=== PATIENT | male | born 1990 | race African-American/Black ===

== ENCOUNTER 2019-11-07 11:12 | Emergency (ER) | payer OTHER ==
[2019-11-07 11:29] VITALS: BP 140/77; PULSE 73; TEMP 98.2; BMI 38.0
[2019-11-07] MEDS ORDERED: ACETAMINOPHEN 325 MG TABLET (FP) PO ONE (12:09)
--- NOTE | 2019-11-07 12:15 | PDOC ---
Attending Attestation - Resident Resident Name: Jovani Ramirez - ED Attending Attestation I have performed the following: I have examined & evaluated the patient, The case was reviewed & discussed with the resident, I agree w/resident's findings & plan, Exceptions are as noted - HPI HPI: 11/07/19 12:11 29YOM with h/o HTN and HLD who p/w 3 days vague LEE, lightheadedness, and increased defecation yesterday without diarrhea or change in stool consistency. Frontal headache which is mild and similar to prior headaches. He notes that the lightheadedness is intermittent which occurs concurrently with mild nausea. He denies f/c/n/v/d/c, n/t/w focally. Denies any LOC or feeling like he is/was ever going to faint. - Physicial Exam PE: 11/07/19 12:12 GENERAL: well-appearing, A/Ox4, no distress, answers questions appropriately, obese, very pleasant HEENT: PERRLA, EOMI, moist mucous membranes NECK/BACK: no midline ttp, no spinal step-off or deformity, no hematoma, full ROM, neck supple CARDIOVASCULAR: regular rate/rhythm, no MGR, strong peripheral pulses, capillary refill <2 seconds, extremities wwp, no edema LUNGS/RESPIRATORY: no respiratory distress, CTAB GI/ABDOMEN: symmetric [id number], normoactive BS, soft, no ttp, no midline pulsatile masses : no CVA tenderness MSK/EXTREMITIES: no muscle atrophy, no acute deformity SKIN: warm and dry, no pallor, no jaundice, no rash, no pathologic-appearing bruising, no skin breakdown, no cuts, no lesions NEUROLOGICAL: GCS 15, CN II-XII grossly intact, 5/5 strength proximally and distally, no facial droop, gait normal - Medical Decision Making 11/07/19 12:12 Adult male Pt p/w headache, no reported mechanism for injury, no new red flag symptoms (see HPI). LEE not worse on awakening in the AM, no B symptoms, trauma, fever, vision loss, syncope, n/t/w focally, sudden onset, etc. Lightheadedness on standing, patient notes he is dehydrated. Initial Vital Signs Temp Pulse Resp BP Pulse Ox 98.2 F 73 16 140/77 99 11/07/19 11:25 11/07/19 11:25 11/07/19 11:25 11/07/19 11:25 11/07/19 11:25 W/U ordered: EKG TX ordered: None EKG: Reviewed; results as noted in ECG Review section. 11/07/19 14:30 This Pt has gotten significant relief of symptoms while in the ED. On last reassessment, vitals are wnl, pain is reasonably controlled, and exam is benign. Workup is not concerning for emergency-level pathology at this time. He is appropriate for discharge home w/ close outpatient f/u. He is comfortable with this plan & will take Motrin and/or Tylenol for pain. He will follow up with his primary care provider in the next 1-3 days. Specific return precautions are discussed and he will come back to the ER if necessary. Discharge completed by resident physician. Heart Score/ECG Review #1 11/07/19 12:28 Sinus rhythm, rate 64, normal axis and intervals, no ischemic ST-T changes Discharge - Discharge Information Problems reviewed: Yes Clinical Impression/Diagnosis: Intermittent lightheadedness Headache Qualifiers: Headache type: unspecified Headache chronicity pattern: episodic headache Intractability: not intractable Qualified Code(s): R51 - Headache Condition: Stable Disposition: HOME - Admission No - Follow up/Referral Referrals: ON STAFF,NOT [Primary Care Provider] - - Patient Discharge Instructions Patient Printed Discharge Instructions: DI for Headache Additional Instructions: You were seen and evaluated for headache and intermittent lightheadedness. Continue your home medications as directed. These chronic medical problems may play a role in your symptoms and will cause you worse medical problems in the future if left untreated. Likewise, please discontinue any supplements that you have not discussed with your primary care doctors as these can have unintended effects and are not federally regulated for safety and quality. Please follow up with your primary care doctor when she returns to the office next week. Home Care and Follow Up: - Make sure you are drinking plenty of fluids.. Increase your normal fluid intake. It is OK if you do not feel like eating as long as you are staying well hydrated. You should need to urinate every 3-4 hours. - You may use medications such as acetaminophen (Tylenol) 650-1000mg or ibuprofen (Advil, Motrin) 400-600mg every 6 hours as needed for pain or fever over 101F - Consider placing a humidifier in your room overnight to help relieve congestion and reduce drying of your nose and mouth. - Use throat lozenges (cough drops) for sore throat or cough - If you use additional cold medications, make sure they do not contain medicines you are already taking such as acetaminophen or ibuprofen - You should feel better within a week, though cough can sometimes last longer. If you are not feeling better in a week, follow up with your primary doctor. - Seek immediate care if you have worsening symptoms, difficulty breathing, you faint (pass out), you are unable to stay hydrated, you develop high fevers over 104F that do not come down with medication, or you have any other medical emergency. - Post Discharge Activity
[2019-11-07] MEDS ORDERED: ACETAMINOPHEN 325 MG TABLET (FP) ONE (12:16)
--- NOTE | 2019-11-07 12:29 | PDOC ---
History of Present Illness - General History Source: Patient Exam Limitations: No Limitations - History of Present Illness Initial Comments: 11/07/19 12:10 HPI: 29yo M pmh HTN, HLD, obesity, presenting with 3 days of headache, intermittent lightheadedness. Patient endorses a mild frontal headache, non- radiating, non-pulsating, no photophobia or lacrimation. Has not tried any medication for this at home. Also endorses intermittent episodes of lighthead edness and nausea (without emesis) over this period. Reports he is not compliant with his home medications and instead takes several herbal supplements. Denies chest pain, palpitations, SOB, cough, fevers, chills, abdominal pain, syncope, vomiting. All: PCN Meds: Non-compliant PMH: HTN, HLD PSH: None <Jovani Ramirez - Last Filed: 11/07/19 12:52> <Rosibel Gongora - Last Filed: 11/07/19 12:54> - General Chief Complaint: Lightheaded Stated Complaint: LIGHTHEADED Time Seen by Provider: 11/07/19 11:49 Past History - Travel History Traveled outside of the country in the last 30 days: No Close contact w/someone who was outside of country & ill: No - Medical History COPD: No HTN: Yes Hypercholesterolemia: Yes - Psycho-Social/Smoking History Smoking History: Current every day smoker Information on smoking cessation initiated: No - Substance Abuse Hx (Audit-C & DAST Scrn) How often the patient has a drink containing alcohol: Never Score: In Men: 4 or > Positive; In Women: 3 or > Positive: 0 Screen Result (Pos requires Nsg. Audit-10AR): Negative <Jovani Ramirez - Last Filed: 11/07/19 12:52> <Roisbel Gongora - Last Filed: 11/07/19 12:54> - Medical History Allergies/Adverse Reactions: Allergies Allergy/AdvReac Type Severity Reaction Status Date / Time Penicillins Allergy Verified 11/07/19 11:25 Home Medications: Ambulatory Orders Hydrochlorothiazide [Hctz -] 25 mg PO DAILY 11/07/19 Simvastatin [Zocor] 10 mg PO HS 11/07/19 Review of Systems - Review of Systems Able to Perform ROS?: Yes Is the patient limited Danish proficient: Yes Constitutional: No: Chills, Fever HEENTM: No: Eye Pain, Blurred Vision, Recent change in vision, Throat Pain Respiratory: No: Cough, Shortness of Breath Cardiac (ROS): Yes: Lightheadedness. No: Chest Pain, Irregular Heart Rate, Palpitations, Chest Tightness ABD/GI: No: Constipated, Diarrhea, Nausea, Vomiting : No: Burning, Dysuria, Frequency Musculoskeletal: No: Muscle Pain, Muscle Weakness Integumentary: No: Bruising, Pruritus, Rash Neurological: Yes: See HPI, Headache. No: Numbness, Tingling, Weakness Psychiatric: No: Stressors, Change in Appetite Endocrine: No: Increased Thirst, Increased Urine Hematologic/Lymphatic: No: Anemia, Blood Clots, Easy Bleeding All Other Systems: Reviewed and Negative <Jovani Ramirez - Last Filed: 11/07/19 12:52> *Physical Exam - Vital Signs Last Vital Signs Temp Pulse Resp BP Pulse Ox 98.2 F 73 16 140/77 99 11/07/19 11:25 11/07/19 11:25 11/07/19 11:25 11/07/19 11:25 11/07/19 11:25 - Physical Exam 11/07/19 12:31 Vitals reviewed, AFVSS GEN: Well appearing, obese, appears stated age, NAD, comfortable. AAOx3. HEENT: NCAT, EOMI, PERRL. Sclera anicteric, noninjected. No facial asymmetry. Moist mucous membranes. Normal voice. Trachea midline. CV: RRR, S1/S2, no murmurs / rubs / gallops appreciated. LUNG: CTABL, normal work of breathing. No wheezes, rales, rhonchi. No cough. Speaking full sentences. GI: Soft, NTND, +BS, no guarding, no rebound. No masses. EXTREMITIES: 2+ distal pulses. No clubbing / cyanosis / edema. No gross deformity in any extremity. SKIN: Warm, dry, no rashes appreciated, non-jaundiced. PSYCH: Normal mood and affect. Cooperative and appropriate. NEURO: CN grossly intact. Moving all extremities well. Normal strength and sensation grossly. <Jovani Ramirez - Last Filed: 11/07/19 12:52> - Vital Signs Last Vital Signs Temp Pulse Resp BP Pulse Ox 98.2 F 73 16 140/77 99 11/07/19 11:25 11/07/19 11:25 11/07/19 11:25 11/07/19 11:25 11/07/19 11:25 <Rosibel Gongora - Last Filed: 11/07/19 12:54> ED Treatment Course - Medications Given in the ED: ED Medications Discontinued Medications Generic Name Dose Route Start Last Admin Trade Name Zoey PRN Reason Stop Dose Admin Acetaminophen 975 mg 11/07/19 12:09 11/07/19 12:20 Tylenol - PO 11/07/19 12:10 975 mg ONCE ONE Administration <Rosibel Gongora - Last Filed: 11/07/19 12:54> Medical Decision Making - Medical Decision Making 11/07/19 12:32 29yo M pmh HTN, HLD, obesity, presenting with 3 days of headache, intermittent lightheadedness. History notable for mild headache, lightheadedness intermittently (setting of increased ambient temperature), headache more mild than prior - untreated at home. Physical exam unremarkable, stable vitals (HR 60s), well appearing, comfortable. Together concerning for most likely primary headache, ?intermittent dehydration, also concerning for supplement induced symptoms in setting of recent 2 weeks of new alternative "for my health" therapies. - EK, NSR, normal axis, normal intervals (QTc 373), no ST elevations or concernign morphologies, notable for mild J point elevation in V2 - 975mg Tylenol PO Dispo: Home <Jovani Ramirez - Last Filed: 11/07/19 12:52> Discharge - Discharge Information Problems reviewed: Yes - Admission No <Jovani Ramirez - Last Filed: 11/07/19 12:52> <Rosibel Gongora - Last Filed: 11/07/19 12:54> - Discharge Information Clinical Impression/Diagnosis: Intermittent lightheadedness Headache Qualifiers: Headache type: unspecified Headache chronicity pattern: episodic headache Intractability: not intractable Qualified Code(s): R51 - Headache Condition: Stable Disposition: HOME - Follow up/Referral Referrals: ON STAFF,NOT [Primary Care Provider] - - Patient Discharge Instructions Patient Printed Discharge Instructions: DI for Headache Additional Instructions: You were seen and evaluated for headache and intermittent lightheadedness. Continue your home medications as directed. These chronic medical problems may play a role in your symptoms and will cause you worse medical problems in the future if left untreated. Likewise, please discontinue any supplements that you have not discussed with your primary care doctors as these can have unintended effects and are not federally regulated for safety and quality. Please follow up with your primary care doctor when she returns to the office next week. Home Care and Follow Up: - Make sure you are drinking plenty of fluids.. Increase your normal fluid intake. It is OK if you do not feel like eating as long as you are staying well hydrated. You should need to urinate every 3-4 hours. - You may use medications such as acetaminophen (Tylenol) 650-1000mg or ibuprofen (Advil, Motrin) 400-600mg every 6 hours as needed for pain or fever over 101F - Consider placing a humidifier in your room overnight to help relieve congestion and reduce drying of your nose and mouth. - Use throat lozenges (cough drops) for sore throat or cough - If you use additional cold medications, make sure they do not contain med icines you are already taking such as acetaminophen or ibuprofen - You should feel better within a week, though cough can sometimes last longer. If you are not feeling better in a week, follow up with your primary doctor. - Seek immediate care if you have worsening symptoms, difficulty breathing, you faint (pass out), you are unable to stay hydrated, you develop high fevers over 104F that do not come down with medication, or you have any other medical emergency. - Post Discharge Activity
--- NOTE | 2019-11-07 14:51 | EKG ---
Test Reason : Blood Pressure : / mmHG Vent. Rate : 064 BPM Atrial Rate : 064 BPM P-R Int : 180 ms QRS Dur : 090 ms QT Int : 362 ms P-R-T Axes : 043 022 005 degrees QTc Int : 373 ms NORMAL SINUS RHYTHM NONSPECIFIC T WAVE ABNORMALITY ABNORMAL ECG NO PREVIOUS ECGS AVAILABLE Confirmed by LORA ONTIVEROS MD ([id number]) on 11/07/2019 2:50:47 PM Referred By: Confirmed By:LORA ONTIVEROS MD
== END 2019-11-07 13:10 | disposition home or self-care (01) ==
LOC: JER 11:12
DX: R51 Headache (principal)
CPT/HCPCS: 93005; 93010; 99283-25

== ENCOUNTER 2020-07-16 06:06 | Observation (INO) | payer OTHER ==
[2020-07-16] MEDS ORDERED: ASPIRIN 81 MG CHEWABLE TABLETS PO ONE (06:25)
[2020-07-16 06:27] VITALS: BMI 38.0
[2020-07-16] MEDS ORDERED: ASPIRIN 81 MG CHEWABLE TABLETS PO SCH ×2 (06:46→10:00)
[2020-07-16 06:52] LABS: EOS % 1.7 % (0-4.5); HEMATOCRIT 45.1 % (35.4-49); HEMOGLOBIN 16.2 GM/dL (11.7-16.9); LYMPH % 30.5 % (8-40); MCH 31.9 pg (25.7-33.7); MCHC 35.9 g/dl (32.0-35.9); MEAN CELL VOLUME 88.9 fl (80-96); MEAN PLT VOLUME 7.4 fl (7.5-11.1); MONO % 5.6 % (3.8-10.2); NEUT % 61.2 % (42.8-82.8); PLATELET COUNT 215 K/MM3 (134-434); RBC 5.07 M/mm3 (4.00-5.60); RDW 13.7 % (11.9-15.9); WHITE BLOOD COUNT 7.3 K/mm3 (4.0-10.0)
[2020-07-16 07:12] LABS: INR 1.02 (0.83-1.09); PROTHROMBIN TIME (PATIENT) 12.5 SEC (9.7-13.0)
[2020-07-16 07:14] LABS: ACTIVATED PTT 31.8 SECONDS (25.2-36.5)
[2020-07-16 07:16] LABS: CHLORIDE 106 mmol/L (98-107); POTASSIUM 3.7 mmol/L (3.5-5.1); SODIUM 138 mmol/L (136-145)
[2020-07-16 07:18] LABS: ALBUMIN 3.8 g/dl (3.4-5.0); ANION GAP 7 MMOL/L (8-16); BLOOD UREA NITROGEN 16.4 mg/dL (7-18); CALCIUM 8.9 mg/dL (8.5-10.1); CO2 25 mmol/L (21-32)
[2020-07-16 07:19] LABS: GLUCOSE,RANDOM 168 mg/dL (74-106)
[2020-07-16 07:21] LABS: SGOT/AST 25 U/L (15-37); SGPT/ALT 31 U/L (13-61)
[2020-07-16 07:23] LABS: BILIRUBIN,TOTAL 0.4 mg/dL (0.2-1)
[2020-07-16 07:24] LABS: ALK PHOS 70 U/L (45-117)
[2020-07-16] MEDS ORDERED: ASPIRIN 81 MG CHEWABLE TABLETS ONE (10:25)
[2020-07-16] MEDS ORDERED: HEPARIN NA (PORCINE) 5,000 UNITS/ML 1ML VIAL SQ SCH (14:00)
[2020-07-16] MEDS ORDERED: HEPARIN NA (PORCINE) 5,000 UNITS/ML 1ML VIAL ONE (14:05)
[2020-07-16 14:17] VITALS: BP 135/93; PULSE 73; TEMP 98.1
== END 2020-07-16 15:40 | disposition left against medical advice (07) ==
LOC: JER 06:06 → JERBED 07:17
PROVIDERS: ADMIT Internal Medicine; ATTEND Internal Medicine
DX: R07.9 Chest pain, unspecified (principal); I10 Essential (primary) hypertension; E66.9 Obesity, unspecified; Z68.38 Body mass index [BMI] 38.0-38.9, adult; E78.5 Hyperlipidemia, unspecified
CPT/HCPCS: 36415; 70496-TC; 70498-TC; 71045-TC-FY; 71275-TC; 74174-TC; 80053; 83735; 84484; 85025; 85379; 85610; 85730; 93005; 93010; 99285-25; C9803; G0378; Q9967; U0003; U0005

== ENCOUNTER 2020-07-31 06:53 | Emergency (ER) | payer OTHER ==
[2020-07-31 07:14] VITALS: BMI 83.7
[2020-07-31 08:09] LABS: BASO % 1.1 % (0-2.0); EOS % 2.4 % (0-4.5); HEMATOCRIT 45.2 % (35.4-49); HEMOGLOBIN 16.4 GM/dL (11.7-16.9); LYMPH % 26.2 % (8-40); MCHC 36.3 g/dl (32.0-35.9); MEAN PLT VOLUME 7.4 fl (7.5-11.1); MONO % 7.7 % (3.8-10.2); NEUT % 62.6 % (42.8-82.8); PLATELET COUNT 230 K/MM3 (134-434); RBC 5.14 M/mm3 (4.00-5.60); RDW 13.5 % (11.9-15.9); WHITE BLOOD COUNT 6.8 K/mm3 (4.0-10.0)
[2020-07-31 08:19] LABS: CHLORIDE 106 mmol/L (98-107); SODIUM 141 mmol/L (136-145)
[2020-07-31 08:21] LABS: ANION GAP 10 MMOL/L (8-16); BLOOD UREA NITROGEN 15.3 mg/dL (7-18); CALCIUM 8.5 mg/dL (8.5-10.1); CO2 24 mmol/L (21-32); MAGNESIUM 2.3 mg/dL (1.8-2.4)
[2020-07-31 08:22] LABS: GLUCOSE,RANDOM 115 mg/dL (74-106)
[2020-07-31 08:25] LABS: CREATININE 0.9 mg/dL (0.55-1.3); SGOT/AST 27 U/L (15-37); SGPT/ALT 33 U/L (13-61)
[2020-07-31 08:26] LABS: BILIRUBIN,TOTAL 0.4 mg/dL (0.2-1)
[2020-07-31 08:27] LABS: ALK PHOS 71 U/L (45-117)
[2020-07-31 08:39] LABS: INR 1.04 (0.83-1.09); PROTHROMBIN TIME (PATIENT) 12.8 SEC (9.7-13.0)
[2020-07-31] MEDS ORDERED: SODIUM CHLORIDE 1,000 ML IV STA (08:47)
[2020-07-31] MEDS ORDERED: ONDANSETRON 4 MG/2 ML VIAL IVPUSH ONE (08:47)
[2020-07-31] MEDS ORDERED: FAMOTIDINE 20 MG/50 ML IVPB 20 MG/50 ML MG IVPB ONE ×2 (08:51→08:57)
[2020-07-31] MEDS ORDERED: ACETAMINOPHEN 500 MG TABLET (FP) PO ONE (08:51)
[2020-07-31] MEDS ORDERED: MAG HYDROX/AL HYDROX/SIMETH 30 ML UNIT-DOSE CUP PO ONE (08:51)
[2020-07-31] MEDS ORDERED: ACETAMINOPHEN 325 MG TABLET (FP) ONE (08:57)
[2020-07-31] MEDS ORDERED: MAG HYDROX/AL HYDROX/SIMETH 30 ML UNIT-DOSE CUP ONE (08:57)
[2020-07-31] MEDS ORDERED: ONDANSETRON 4 MG/2 ML VIAL ONE (08:57)
[2020-07-31 10:50] VITALS: BP 126/82; PULSE 71; TEMP 98
== END 2020-07-31 11:02 | disposition home or self-care (01) ==
LOC: JER 06:53
PROC: 3E033GC Introduction of Other Therapeutic Substance into Peripheral Vein, Percutaneous Approach (ICD-10-PCS; principal; 2020-07-31)
PROC: 3E033GC Introduction of Other Therapeutic Substance into Peripheral Vein, Percutaneous Approach (ICD-10-PCS; 2020-07-31)
PROC: 3E0337Z Introduction of Electrolytic and Water Balance Substance into Peripheral Vein, Percutaneous Approach (ICD-10-PCS; 2020-07-31)
DX: R07.9 Chest pain, unspecified (principal); R11.0 Nausea; R00.2 Palpitations
CPT/HCPCS: 36415; 71046-TC-FY; 80053; 82550; 82553; 82962; 83735; 84484; 85025; 85610; 85730; 93005; 93010; 99285-25

== ENCOUNTER 2021-02-03 23:16 | Emergency (ER) | payer OTHER ==
[2021-02-03 23:42] VITALS: BP 142/85; PULSE 79; TEMP 98.2; BMI 38.0
[2021-02-04] MEDS ORDERED: DOXYCYCLINE HYCLATE 100 MG CAPSULE PO ONE ×2 (00:16→00:28)
== END 2021-02-04 00:50 | disposition home or self-care (01) ==
LOC: JER 23:16
DX: L02.215 Cutaneous abscess of perineum (principal)
CPT/HCPCS: 99283-25